=== PATIENT | male | born 1950 | race African-American/Black ===

== ENCOUNTER → 2016-09-05 | Outpatient (CLI) | payer SELFPAY ==
[~2016-09-05] MED LIST: AMLODIPINE BESY10 MG PO; AUGMENTIN875 MG PO; COUMADIN5 MG PO; FLONASE 0.05% N16 G1; HYDROCHLOROTHIA25 MG PO; LIPITOR40 MG PO; LISINOPRIL5 MG PO; LOVENOX30 MG/0.3 INJ; NORVASC PO; ZESTRIL10 M2 PO
--- NOTE | ~2016-09-05 | CT4 ---
[facility] A Service of [facility] & [facility] RADIOLOGY TEXT RESULTS PATIENT: ANKUR PHIPPS JR LOCATION: CCAT : 46 UNIT #: [id number] AGE: [address]: Donnie Bullock MD SEX: M ORDER DR: [id number] [facility] [address] [place], [place] [address] [id number] O MR#: [id number] [facility] #: [id number] NAME: ANKUR PHIPPS JR : 1950 SEX: M STUDY DATE/TIME: 09/05/2016 10:25 UNIT: CCAT ROOM: STUDY DESCRIPTION: CT Abd and Pelv Wo Cont Attending Physician: Donnie Bullock M.D. Referring Physician: Donnie Bullock M.D. Ordering Physician: Donnie Bullock M.D. Primary Care Physician: Teresa Alvarado Aprn MEDICAL IMAGING REPORT This report is preliminary unless electronic signature is present EXAM CT abdomen and pelvis without contrast 09/05/2016 HISTORY Physician's order states abdominal aortic aneurysm. Followup. Patient states no current complaints. Hypertension. Gastroesophageal reflux disease. COMPARISON CT abdomen and pelvis without contrast 09/21/2015, CT angiography of the abdomen and pelvis 02/08/2016. Abdominal aortic ultrasound 09/05/2016. PROCEDURE 5 mm axial images from the lung bases through the lesser trochanters without contrast. Sagittal and coronal reformatted images were obtained. This CT examination was performed with one or more of the following radiation dose reduction techniques: automatic exposure control, adjustment of mA and/or kV according to patient size, and iterative reconstruction. FINDINGS ABDOMEN: Aortobi-iliac endograft has been placed, since the 09/21/2015 examination. The graft extends from just below the takeoff of the bilateral renal arteries into the proximal bilateral common iliac arteries. There is fusiform aneurysmal dilation of the infrarenal abdominal aorta. On the current study, the endosac measures 5.0 x 5.7 cm (from adventitia to adventitia) compared to 5.2 x 5.9 cm on previous study. Evaluation for endoleak cannot be performed without the benefit of IV contrast. Bilateral common iliac arteries maintain normal caliber. The imaged distal descending thoracic aorta is of normal caliber. Lung bases are free of consolidation. There are 2 tiny low-density STS. [facility] A Service of [facility] & [facility] RADIOLOGY TEXT RESULTS PATIENT: ANKUR PHIPPS JR LOCATION: CCAT : 46 UNIT #: [id number] AGE: [address]: Donnie Bullock MD SEX: M ORDER DR: lesions within the liver in the medial left hepatic segment measuring about 7 mm and 5 mm respectively. These are technically too small to characterize but are favored to represent benign cysts or hemangiomas, and are unchanged from the 09/21/2015 examination. Gallbladder, spleen, pancreas, adrenals and kidneys have a normal noncontrast appearance. Diverticular changes are present within the colon, but there is no convincing CT evidence of acute diverticulitis. No free air or free fluid or pathologic adenopathy is seen. PELVIS: There is mild prostatic enlargement. Urinary bladder is decompressed. Rectum is normal. No pelvic adenopathy or free fluid is seen. Advanced diminished disc height at L5-S1. IMPRESSION 1. Aortobi-iliac endostent placement since the 09/21/2015 examination. 2. The aortic aneurysm endosac is slightly smaller than on 09/21/2015. Please refer to the report for measurements. 3. Additional CT findings include, probable tiny cysts or hemangiomas in the liver, unchanged, uncomplicated colonic diverticulosis, prostatic enlargement, degenerative disc changes L5-S1. Dictated by... Evi Marcelo M.D. THIS IS AN ELECTRONICALLY VERIFIED REPORT Evi Marcelo M.D. at 09/07/2016 7:14 AM GUILLE/brent TD: 09/05/2016 13:03 JOB #: [id number] MEDICAL IMAGING REPORT Page 1 of 1 COPY
--- NOTE | ~2016-09-05 | US10 ---
[id number] [facility] [address] [place], [place] [address] [id number] O MR#: [id number] [facility] #: [id number] NAME: ANKUR PHIPPS JR : 1950 SEX: M STUDY DATE/TIME: 09/05/2016 10:46 UNIT: CCAT ROOM: STUDY DESCRIPTION: US Aorta Complete Attending Physician: Donnie Bullock M.D. Referring Physician: Donnie Bullock M.D. Ordering Physician: Donnie Blulock M.D. Primary Care Physician: Teresa Alvarado Aprn MEDICAL IMAGING REPORT This report is preliminary unless electronic signature is present EXAM Ultrasound of the aorta, 09/05/2016 HISTORY Aortic stent graft surveillance. Previous endovascular aortic aneurysm repair. FINDINGS High-resolution B-mode imaging and color flow Doppler analysis was performed of the abdominal aorta and iliac arteries in longitudinal and transverse views. There is a bifurcated graft noted in the aneurysm sac. Both graft limbs are patent. The aorta measures 2.4 cm in greatest diameter in its proximal segment, 1.9 cm in greatest diameter in its distal segment, and 6.4 cm in greatest diameter at the aortic bifurcation. There is no demonstrated color flow signal outside of the stent graft and within the aneurysm sac to suggest an endoleak. IMPRESSION Patent aortic bifurcated stent graft. No endoleak is demonstrated. The aneurysm sac measures 6.4 cm in greatest diameter. Dictated by... Héctor Dueñas M.D. THIS IS AN ELECTRONICALLY VERIFIED REPORT Héctor Dueñas M.D. at 09/06/2016 7:33 AM SOHA/abigail TD: 09/05/2016 16:06 JOB #: [id number] MEDICAL IMAGING REPORT Page 1 of 1 COPY
== END | disposition home or self-care (01) ==
LOC: CCAT 09-03 10:40
DX: I71.4 Abdominal aortic aneurysm, without rupture (principal); I10 Essential (primary) hypertension; K21.9 Gastro-esophageal reflux disease without esophagitis
CPT/HCPCS: 74176; 76770

== ENCOUNTER → 2016-11-20 | Outpatient (CLI) | payer MEDICARE, SELFPAY ==
--- NOTE | ~2016-11-20 | US10 ---
[id number] [facility] [address] [place], [place] [address] [id number] O MR#: [id number] [facility] #: [id number] NAME: ANKUR PHIPPS : 1950 SEX: M STUDY DATE/TIME: 11/20/2016 9:05 UNIT: CGUS ROOM: STUDY DESCRIPTION: US Aorta Complete Attending Physician: Donnie Bullock M.D. Referring Physician: Donnie Bullock M.D. Ordering Physician: Donnie Bullock M.D. Primary Care Physician: Teresa Alvarado Aprn MEDICAL IMAGING REPORT This report is preliminary unless electronic signature is present EXAM Aortic Doppler INDICATION Aortic aneurysm. Patient is status post endovascular repair. COMPARISON Most recent followup exam was in August 2016. TECHNIQUE Tran-scale, color Doppler and spectral Doppler waveform analysis was performed through the aorta. FINDINGS Proximal abdominal aorta measures 2.4 x 2.5 cm. Mid abdominal aorta measures 1.8 x 1.6 cm. Aneurysm sac distally measures up to 5.3 x 4.4 cm. Stent graft is identified. Left common iliac artery measures 1.1 x 1.1 cm. Right common iliac artery measures 1.1 x 0.9 cm. There has been no significant interval change when compared to the prior ultrasound from September 05, 2016. IMPRESSION No significant interval change in the size of the patient's abdominal aorta when compared to the exam from September 05, 2016. Please note the CT which was also performed today will allow for much more sensitive evaluation of the size of the aorta. Dictated by... Minnie De La Cruz M.D. THIS IS AN ELECTRONICALLY VERIFIED REPORT Minnie De La Cruz M.D. at 11/21/2016 4:54 PM TIMOTHY/abigail TD: 11/20/2016 15:26 JOB #: [id number] MEDICAL IMAGING REPORT Page 1 of 1 COPY
--- NOTE | ~2016-11-20 | CT4 ---
[facility] A Service of [facility] RADIOLOGY TEXT RESULTS PATIENT: ANKUR PHIPPS JR LOCATION: [facility] : [birth year] UNIT #: [id number] AGE: [address]: Donnie Bullock MD SEX: M ORDER DR: [id number] [facility] [address] [place], [place] [address] [id number] O MR#: [id number] [facility] #: [id number] NAME: ANKUR PHIPPS : 1950 SEX: M STUDY DATE/TIME: 11/20/2016 9:34 UNIT: US ROOM: STUDY DESCRIPTION: CT Abd and Pelv Wo Cont Attending Physician: Donnie Bullock M.D. Referring Physician: Donnie Bullock M.D. Ordering Physician: Donnie Bullock M.D. Primary Care Physician: Teresa Alvarado Aprn MEDICAL IMAGING REPORT This report is preliminary unless electronic signature is present EXAM CT abdomen and pelvis without contrast INDICATION Follow up from endovascular aortic repair of aortic aneurysm. TECHNIQUE CT scan of the abdomen and pelvis was performed without contrast. Coronal and sagittal reformatted images were obtained. This CT examination was performed with one or more of the following radiation dose reduction techniques: automatic exposure control, adjustment of mA and/or kV according to patient size, and iterative reconstruction. COMPARISON 09/05/2016. FINDINGS There has been a prior EVAR. The stent graft is stable in appearance. Aneurysm sac size measures slightly smaller at 5.3 x 5 cm. Previously it was 5.7 x 5 cm. The lung bases are clear. Stable low-density lesion in the liver presumably a cyst. The gallbladder is unremarkable. The spleen is unremarkable. Stable mild atrophy of the left kidney with respect to the right kidney. The adrenal glands are unremarkable. The pancreas is unremarkable. PELVIS: Prostatomegaly. The colon is unremarkable. The appendix is normal. Bone windows show degenerative change at L5-S1. IMPRESSION 1. Stable appearance of the aortic stent graft. 2. Slight decrease in size of the aneurysm sac. [facility] A Service of [facility] RADIOLOGY TEXT RESULTS PATIENT: ANKUR PHIPPS JR [id number] : [birth year] UNIT #: [id number] AGE: [address]: Donnie Bullock MD SEX: M ORDER DR: Dictated by... Ryley Nguyen M.D. THIS IS AN ELECTRONICALLY VERIFIED REPORT Ryley Nugyen M.D. at 11/20/2016 4:36 PM MARINA/brent TD: 11/20/2016 13:43 JOB #: [id number] MEDICAL IMAGING REPORT Page 1 of 1 COPY
== END | disposition home or self-care (01) ==
LOC: CGUS 08:45
DX: I71.4 Abdominal aortic aneurysm, without rupture (principal)
CPT/HCPCS: 74176; 76770